=== PATIENT | female | born 1960 | race Hispanic/Latino ===

== ENCOUNTER 2017-11-01 12:42 | Emergency (ER) | payer OTHER ==
[2017-11-01] MEDS ORDERED: ORPHENADRINE CITRATE 30 MG/ML ML ONE (13:54)
[2017-11-01] MEDS ORDERED: ACETAMINOPHEN EXTRA STRENGTH 500 MG TABLET ONE (15:42)
[2017-11-01] MEDS ORDERED: LIDOCAINE 5% TOPICAL PATCH TP ONE (15:42)
== END 2017-11-01 16:54 | disposition home or self-care (01) ==
LOC: EDH 12:42
DX: M62.830 Muscle spasm of back (principal); E11.9 Type 2 diabetes mellitus without complications; Z72.0 Tobacco use; Z88.6 Allergy status to analgesic agent
CPT/HCPCS: 71046; 71100; 96372; 99284; J2360